=== PATIENT | female | born 1950 | race Caucasian/White ===

== ENCOUNTER 2016-12-11 23:00 | Inpatient (IN) | payer MEDICARE ==
[~2016-12-11] VITALS: Ht 160 cm; Wt 70.5 kg
[2016-12-12] MEDS ORDERED: NEURONTIN 400400 MG PO (03:22)
[2016-12-12] MEDS ORDERED: SUBOXONE 8 MG-1 EACH SL (03:23)
[2016-12-12] MEDS ORDERED: KLONOPIN TAB 00.5 MG PO (03:24)
[2016-12-12] MEDS ORDERED: OXYGEN (03:25)
[2016-12-12 06:05] LABS: HEMOGLOBIN 14.7 gm/dl (12.3-15.3); RED BLOOD COUNT 4.7 M/UL (4.00-5.10); WHITE BLOOD COUNT 6.1 K/UL (4.5-11.0)
[2016-12-12 06:23] LABS: BUN/CREATININE RATIO 18 (0-10)
[2016-12-13 04:55] LABS: RED BLOOD COUNT 4.73 M/UL (4.00-5.10)
[2016-12-13 05:14] LABS: BUN/CREATININE RATIO 22 (0-10)
[2016-12-13 05:39] LABS: WHITE BLOOD COUNT 23.5 K/UL (4.5-11.0)
[2016-12-14 05:09] LABS: RED BLOOD COUNT 4.53 M/UL (4.00-5.10); WHITE BLOOD COUNT 22.3 K/UL (4.5-11.0)
[2016-12-14 05:22] LABS: BUN/CREATININE RATIO 30 (0-10)
--- NOTE | 2016-12-15 05:47 | NUR ---
PT WAS STANDING UP AT SINK IN ROOM TO EAT A PIECE OF CAKE. PT STATES SHE TURNED AROUND TO GET BACK IN BED AND TRIPPED OVER HER SCUD TUBES. PT SAID SHE THOUGHT THEY WOULD REACH TO THE SINK. I INFORMED PATIENT NOT TO GET UP WITH THE SCUDS ON HER LEGS AND TO ASK FOR ASSISTANCE BEFORE GETTING OUT OF BED AGAIN. PT NOT SCORED A FALL RISK PRIOR TO FALL. MD NOTIFIED, PT ASSESSED FOR ANY INJURIES, NONE NOTED. PT STATES SHE IS NOT HURTING ANYWHERE JUST EMBARRESSED.
[2016-12-15 05:59] LABS: HEMOGLOBIN 14.3 gm/dl (12.3-15.3); RED BLOOD COUNT 4.57 M/UL (4.00-5.10); WHITE BLOOD COUNT 18.7 K/UL (4.5-11.0)
[2016-12-15 06:15] LABS: BUN/CREATININE RATIO 30 (0-10)
[2016-12-16 04:54] LABS: HEMOGLOBIN 13.5 gm/dl (12.3-15.3); RED BLOOD COUNT 4.37 M/UL (4.00-5.10); WHITE BLOOD COUNT 15.5 K/UL (4.5-11.0)
[2016-12-16 05:15] LABS: BUN/CREATININE RATIO 36 (0-10)
[2016-12-16] MEDS ORDERED: MEDROL DOSEPAK 24 MG PO (21:27)
[2016-12-16] MEDS ORDERED: PROVENTIL HFA 61 INH INH (21:27)
[2016-12-16] MEDS ORDERED: LEVAQUIN750 MG PO (21:27)
[2016-12-16] MEDS ORDERED: PERFOROMIS20 MCG/2 M INH (21:28)
[2016-12-16] MEDS ORDERED: PULMICORT0.5 MG/2 M INH (21:28)
[2016-12-16] MEDS ORDERED: NORVASC 5 MG TAB5 MG PO (21:29)
[2016-12-16] MEDS ORDERED: PREDNISONE20 MG PO (21:29)
[2016-12-16] MEDS ORDERED: TESSALON PERLE100 MG PO (21:30)
[2016-12-16] MEDS ORDERED: IPRAT-ALBUT 0.5-3 ML INH (21:30)
== END 2016-12-16 22:06 | disposition home or self-care (01) | DRG 189 ==
LOC: MED SURG 4 12-12 02:34
PROVIDERS: Internal Medicine; Physician Assistant; ADMIT Internal Medicine
DX: J96.21 Acute and chronic respiratory failure with hypoxia (principal); J44.1 Chronic obstructive pulmonary disease with (acute) exacerbation; J44.0 Chronic obstructive pulmonary disease with (acute) lower respiratory infection; I10 Essential (primary) hypertension; I25.10 Atherosclerotic heart disease of native coronary artery without angina pectoris; F17.210 Nicotine dependence, cigarettes, uncomplicated; L40.9 Psoriasis, unspecified; E83.39 Other disorders of phosphorus metabolism; E11.65 Type 2 diabetes mellitus with hyperglycemia; G89.4 Chronic pain syndrome; F41.9 Anxiety disorder, unspecified; J20.9 Acute bronchitis, unspecified; D72.829 Elevated white blood cell count, unspecified; T38.0X5A Adverse effect of glucocorticoids and synthetic analogues, initial encounter; Z71.6 Tobacco abuse counseling; Z99.81 Dependence on supplemental oxygen
CPT/HCPCS: 36415; 71010; 71020; 80048; 80053; 81001; 83735; 84100; 85025; 85027; 87040; 87086; 87278; 87899; 94640; 94664; J1650; J1956; J2920; J2930

== ENCOUNTER → 2020-10-05 | Outpatient (CLI) | payer MEDICARE ==
[~2020-10-05] MED LIST: IPRAT-ALBUT 0.5-3 ML INH; KLONOPIN TAB 00.5 MG PO; LEVAQUIN750 MG PO; MEDROL DOSEPAK 24 MG PO; NEURONTIN 400400 MG PO; NORVASC 5 MG TAB5 MG PO; OXYGEN; PERFOROMIS20 MCG/2 M INH; PREDNISONE20 MG PO; PROVENTIL HFA 61 INH INH; PULMICORT0.5 MG/2 M INH; SUBOXONE 8 MG-1 EACH SL; TESSALON PERLE100 MG PO
== END ==
LOC: HEART 5 10:00
DX: R06.02 Shortness of breath (principal); R94.2 Abnormal results of pulmonary function studies; F17.210 Nicotine dependence, cigarettes, uncomplicated
CPT/HCPCS: 94060; 94729; 95012

== ENCOUNTER → 2020-10-06 | Outpatient (CLI) | payer MEDICARE | LOC: RAD 15:18 | DX: J44.9 Chronic obstructive pulmonary disease, unspecified (principal) | CPT/HCPCS: 36600; 71046; 82803 ==

== ENCOUNTER → 2021-04-17 | Outpatient (CLI) | payer MEDICARE | LOC: HEART 5 15:19 → EDSTATUS 16:49 | DX: R06.02 Shortness of breath (principal); R94.2 Abnormal results of pulmonary function studies; Z87.891 Personal history of nicotine dependence | CPT/HCPCS: 94060; 94729 ==

== ENCOUNTER → 2022-01-21 | Outpatient (CLI) | payer MEDICARE | LOC: ECHO 01-18 10:15 | DX: R06.02 Shortness of breath (principal); I08.3 Combined rheumatic disorders of mitral, aortic and tricuspid valves | CPT/HCPCS: ECHO; 93306 ==